=== PATIENT | male | born 1965 | race Caucasian/White ===

== ENCOUNTER → 2016-05-02 | Outpatient (REF) | payer BC, MEDICARE ==
[~2016-05-02] MED LIST: ASPI81CH21 PO; AUGM875T27 PO; BACL10TA2 PO; BUPR100T6 PO; CHLORHEXIDINE SSP; CLIN300C PO; DOCU10ELUD PO; FENT75DI18 TD; OXYC5CAP2 PO; TYLE650T30 PO; WELL150T PO
[2016-05-09 08:06] LABS: BENZODIAZEPINES, URINE SCREEN Negative ng/mL (Cutoff=200); METHADONE, URINE SCREEN Negative ng/mL (Cutoff=300); OXYCODONE URINE Positive (.); pH, URINE 5.4 (4.5-8.9)
== END ==
LOC: M SFHCLACO 10:40
PROVIDERS: ATTEND Physician Assistant
DX: R52 Pain, unspecified (principal)

== ENCOUNTER → 2016-10-06 | Outpatient (REF) | payer BC, MEDICARE ==
[2016-10-10 14:23] LABS: BENZODIAZEPINES, URINE SCREEN Negative ng/mL (Cutoff=200); METHADONE, URINE SCREEN Negative ng/mL (Cutoff=300); pH, URINE 6.6 (4.5-8.9)
== END ==
LOC: M LAB REF 15:23 → M SFHCLACO 15:23
PROVIDERS: ATTEND Physician Assistant
DX: Z79.891 Long term (current) use of opiate analgesic (principal)

== ENCOUNTER → 2016-11-07 | Outpatient (REF) | payer BC, MEDICARE ==
[2016-11-15 14:15] LABS: BENZODIAZEPINES, URINE SCREEN Negative ng/mL (Cutoff=200); METHADONE, URINE SCREEN Negative ng/mL (Cutoff=300); OXYCODONE URINE Positive (.); pH, URINE 5.8 (4.5-8.9)
== END ==
LOC: M SFHCLACO 15:34
PROVIDERS: ATTEND Physician Assistant
DX: Z79.891 Long term (current) use of opiate analgesic (principal)

== ENCOUNTER → 2017-01-16 | Outpatient (REF) | payer BC, MEDICARE ==
[2017-01-20 00:07] LABS: BENZODIAZEPINES, URINE SCREEN Negative ng/mL (Cutoff=200); METHADONE, URINE SCREEN Negative ng/mL (Cutoff=300); OXYCODONE URINE Positive (.); pH, URINE 7.8 (4.5-8.9)
== END ==
LOC: M SFHCLACO 13:16
PROVIDERS: ATTEND Physician Assistant
DX: Z79.891 Long term (current) use of opiate analgesic (principal)

== ENCOUNTER → 2017-10-09 | Outpatient (REF) | payer BC, MEDICARE | LOC: M SFHCLACO 10:53 | DX: M54.5 Low back pain (principal); Z79.891 Long term (current) use of opiate analgesic | CPT/HCPCS: 80307 ==

== ENCOUNTER → 2017-10-18 | Outpatient (CLI) | payer BC, MEDICARE | LOC: M RAD 14:34 | DX: N50.819 Testicular pain, unspecified (principal) | CPT/HCPCS: 76870 ==

== ENCOUNTER → 2018-02-12 | Outpatient (REF) | payer BC, MEDICARE | LOC: M SFHCLACO 14:06 | DX: Z51.81 Encounter for therapeutic drug level monitoring (principal); M54.5 Low back pain; Z79.891 Long term (current) use of opiate analgesic ==

== ENCOUNTER → 2018-02-14 | Outpatient (REF) | payer BC, MEDICARE ==
[2018-02-21 17:40] LABS: AMPHETAMINE SCREEN, URINE Negative ng/mL (Cutoff=1000); BARBITURATES SCREEN, URINE Negative ng/mL (Cutoff=200); BENZODIAZEPINES, URINE SCREEN Negative ng/mL (Cutoff=200); CANNABINOID SCREEN, URINE Negative ng/mL (Cutoff=20); COCAINE SCREEN, URINE Negative ng/mL (Cutoff=300); FENTANYL URINE SCREEN Negative pg/mL (Cutoff=2000); METHADONE, URINE SCREEN Negative ng/mL (Cutoff=300); OPIATE SCREEN, URINE Negative ng/mL (Cutoff=300); OXYCODONE URINE Positive (.); OXYCODONE, SCREEN, URINE See Final Results ng/mL (Cutoff=100); OXYCODONE, URINE CONFIRM 945 ng/mL (Cutoff=100); OXYCODONE/OXYMORPH, URINE Positive (Cutoff=100); OXYMORPHONE, URINE Positive (.); OXYMORPHONE, URINE CONFIRM 997 ng/mL (Cutoff=100); PCP SCREEN, URINE Negative ng/mL (Cutoff=25); SPECIFIC GRAVITY, URINE 1.009 (.); pH, URINE 6.3 (4.5-8.9)
== END ==
LOC: M SFHCLACO 15:55
DX: Z51.81 Encounter for therapeutic drug level monitoring (principal); M54.5 Low back pain; Z79.891 Long term (current) use of opiate analgesic

== ENCOUNTER → 2018-06-04 | Outpatient (REF) | payer BC, MEDICARE ==
[2018-06-07 10:56] LABS: CREATININE, URINE 17.3 mg/dL (20.0-300.0); OXYCODONE URINE Positive (.); OXYCODONE, URINE CONFIRM 407 ng/mL (Cutoff=100); OXYCODONE/OXYMORPH, URINE Positive (Cutoff=100); OXYMORPHONE, URINE Positive (.); OXYMORPHONE, URINE CONFIRM 544 ng/mL (Cutoff=100)
== END ==
LOC: M SFHCLACO 14:35
PROVIDERS: ATTEND Physician Assistant
DX: M54.5 Low back pain (principal); Z79.891 Long term (current) use of opiate analgesic

== ENCOUNTER → 2018-08-23 | Outpatient (REF) | payer BC, MEDICARE ==
[~2018-08-23] MED LIST changes: -DOCU10ELUD PO; +DOCU5LIQ PO
== END ==
LOC: M SFHCLACO 14:44
PROVIDERS: ATTEND Physician Assistant
DX: Z79.891 Long term (current) use of opiate analgesic (principal)

== ENCOUNTER → 2019-05-30 | Outpatient (REF) | payer BC, MEDICARE | LOC: M SFHCLACO 17:26 | PROVIDERS: ATTEND Physician Assistant | DX: Z79.891 Long term (current) use of opiate analgesic (principal) ==

== ENCOUNTER → 2020-02-04 | Outpatient (REF) | payer BC, MEDICARE ==
[2020-02-09 18:07] LABS: OXYCODONE URINE Negative (Cutoff=100); OXYCODONE/OXYMORPH, URINE Positive (Cutoff=100); OXYMORPHONE, URINE Positive (.); OXYMORPHONE, URINE CONFIRM 297 ng/mL (Cutoff=100)
== END ==
LOC: M SFHCADAM 14:17
PROVIDERS: ATTEND Physician Assistant
DX: Z79.891 Long term (current) use of opiate analgesic (principal)

== ENCOUNTER → 2020-04-27 | Outpatient (REF) | payer BC, MEDICARE ==
[2020-04-27 12:47] LABS: HEMATOCRIT 47.2 % (42.0-52.0); HEMOGLOBIN 14.8 g/dl (13.5-17.5); MEAN CORPUSCULAR HEMOGLOBIN 28.5 pg (27.0-33.0); MEAN CORPUSCULAR HGB CONC 31.4 g/dl (32.0-36.5); MEAN CORPUSCULAR VOLUME 90.9 fl (80.0-96.0); PLATELET COUNT, AUTOMATED 393 10^3/uL (150-450); RED BLOOD COUNT 5.19 10^6/uL (4.30-6.10); WHITE BLOOD COUNT 8.1 10^3/uL (4.0-10.0)
[2020-04-27 12:56] LABS: INR 0.93; PROTHROMBIN TIME 12.7 SECONDS (12.5-14.3)
[2020-04-27 12:57] LABS: PARTIAL THROMBOPLASTIN TIME 28.2 SECONDS (24.2-38.5)
[2020-04-27 13:30] LABS: ALBUMIN 3.7 GM/DL (3.2-5.2); ALT/SGPT 23 U/L (12-78); BILIRUBIN,TOTAL 0.3 MG/DL (0.2-1.0); BLOOD UREA NITROGEN 16 MG/DL (7-18); CALCIUM LEVEL 9.1 MG/DL (8.5-10.1); CARBON DIOXIDE LEVEL 30 MEQ/L (21-32); CHLORIDE LEVEL 106 MEQ/L (98-107); CREATININE FOR GFR 0.99 MG/DL (0.70-1.30); GLOMERULAR FILTRATION RATE > 60.0 (>56); GLUCOSE, FASTING 100 MG/DL (70-100); POTASSIUM SERUM 4.9 MEQ/L (3.5-5.1); SODIUM LEVEL 139 MEQ/L (136-145); TOTAL PROTEIN 6.6 GM/DL (6.4-8.2)
== END ==
LOC: M SFHCADAM 09:46
PROVIDERS: ATTEND Physician Assistant
DX: Z01.818 Encounter for other preprocedural examination (principal)

== ENCOUNTER → 2020-04-27 | Outpatient (CLI) | payer BC, MEDICARE ==
--- NOTE | 2020-04-27 14:07 | REP ---
INDICATION: PRE OP. COMPARISON: No comparison chest x-ray. TECHNIQUE: Two views.. FINDINGS: The lungs are well inflated and free of infiltrate. The pleural angles are sharp. The heart size is normal. Pulmonary vasculature is not increased. No significant bony abnormality is seen. Patient is status post lower cervical spine fusion surgery. A dorsal column stimulator lead is noted in the midthoracic spinal canal. There is minimal linear fibrosis in the left lung base. IMPRESSION: No active disease. Dorsal column stimulator and cervical spine fusion hardware noted.. <Electronically signed by Barry Castellanos > 04/27/20 [id number]
== END ==
LOC: M ADAMS 09:47
PROVIDERS: ATTEND Physician Assistant
DX: Z01.818 Encounter for other preprocedural examination (principal)

== ENCOUNTER → 2020-05-27 | Outpatient (CLI) | payer BC, MEDICARE ==
--- NOTE | 2020-05-28 15:20 | SLEEPCENT ---
DATE: 05/27/2020 ORDERED BY: Bryanna Clayton Nocturnal polysomnography was performed for evaluation of sleep physiology in this patient with a history of excessive somnolence and nonrestorative sleep. There was 8 hours and 6 minutes of data reviewed. There was 432 minutes of sleep identified. Sleep latency was short at 6.5 minutes. REM latency was delayed at 242.5 minutes. Sleep architecture shows initial fragmentation. Progression improved later in the night, and there were two REM cycles noted. Overall sleep efficiency was 90.3%. The electrocardiogram showed a sinus rhythm with an average heart rate of 62 beats per minute. Rate ranged 56-80. EEG showed fairly normal waveforms for wake and sleep. There were no focal events identified. There were 32 respiratory events identified of 10 second in duration or greater for an apnea-hypopnea index of 5.2. The events were obstructive, not exclusive to sleep stage. They occurred in the supine posture. Arousals from respiratory events occurred only 1.5 times per hour. There were few oxygen desaturations below 90%. Minor intermittent limb activity and snoring was appreciated over the entire study. IMPRESSION: Mild positional obstructive sleep apnea syndrome (G47.33). Apnea-hypopnea index 5.2. RECOMMENDATION: Sleep position retraining for the avoidance of the supine posture should be sufficient to address the patient's respiratory disruption. If symptoms persist, referral back to the sleep disorder center for pressure therapy could be considered. In the interim, alcohol and sedative avoidance should be practiced and caution exercised during the operation of motor vehicles.
== END ==
LOC: M SLEEP 20:00
PROVIDERS: ATTEND Nurse Practitioner Family
DX: R06.83 Snoring (principal)

== ENCOUNTER → 2020-06-24 | Outpatient (REF) | payer BC, MEDICARE ==
[2020-06-24 13:36] LABS: APPEARANCE, URINE CLEAR (CLEAR); BACTERIA, URINE AUTO NEGATIVE (NEGATIVE); BILIRUBIN, URINE AUTO NEGATIVE (NEGATIVE); BLOOD, URINE BLOOD NEGATIVE (NEGATIVE); COLOR, URINE YELLOW (YELLOW); GLUCOSE, URINE (UA) AUTO NEGATIVE (NEGATIVE); KETONE, URINE AUTO NEGATIVE (NEGATIVE); LEUKOCYTE ESTERASE, URINE AUTO TRACE (NEGATIVE); MUCUS, URINE SMALL (NEGATIVE); NITRITE, URINE AUTO NEGATIVE (NEGATIVE); PROTEIN, URINE AUTO NEGATIVE (NEGATIVE); RBC, URINE AUTO 2 /HPF (0-3); SPECIFIC GRAVITY URINE AUTO 1.015 (1.002-1.035); SQUAMOUS EPITHELIAL CELL UR AU 0 /HPF (0-6); UROBILINOGEN, URINE AUTO 0.2 mg/dL (0.0-2.0); WBC, URINE AUTO 0 /HPF (0-3)
[2020-06-24 13:37] LABS: BASO # 0.1 10^3/uL (0.0-0.2); EOS # 0.3 10^3/uL (0.0-0.5); EOS % 4.8 % (0.0-3.0); HEMOGLOBIN 14.9 g/dl (13.5-17.5); LYMPH # 2.6 10^3/uL (1.5-5.0); LYMPH % 38.6 % (24.0-44.0); MEAN CORPUSCULAR HEMOGLOBIN 29.4 pg (27.0-33.0); MEAN CORPUSCULAR HGB CONC 32.4 g/dl (32.0-36.5); MEAN CORPUSCULAR VOLUME 90.7 fl (80.0-96.0); MONO # 0.7 10^3/uL (0.0-0.8); MONO % 10.3 % (2.0-8.0); NEUTROPHILS # 3.1 10^3/uL (1.5-8.5); NEUTROPHILS % 44.9 % (36.0-66.0); PLATELET COUNT, AUTOMATED 372 10^3/uL (150-450); RED BLOOD COUNT 5.07 10^6/uL (4.30-6.10); WHITE BLOOD COUNT 6.8 10^3/uL (4.0-10.0)
[2020-06-24 13:46] LABS: INR 0.93; PROTHROMBIN TIME 12.7 SECONDS (12.5-14.3)
[2020-06-24 13:47] LABS: PARTIAL THROMBOPLASTIN TIME 30.3 SECONDS (24.2-38.5)
[2020-06-24 14:22] LABS: ALBUMIN 3.8 GM/DL (3.2-5.2); ALT/SGPT 31 U/L (12-78); BILIRUBIN,TOTAL 0.3 MG/DL (0.2-1.0); BLOOD UREA NITROGEN 14 MG/DL (7-18); CALCIUM LEVEL 9.3 MG/DL (8.5-10.1); CARBON DIOXIDE LEVEL 26 MEQ/L (21-32); CHLORIDE LEVEL 109 MEQ/L (98-107); CREATININE FOR GFR 0.89 MG/DL (0.70-1.30); GLOMERULAR FILTRATION RATE > 60.0 (>56); GLUCOSE, FASTING 101 MG/DL (70-100); NT-PRO BNP 10 PG/ML (<125); POTASSIUM SERUM 4.8 MEQ/L (3.5-5.1); SODIUM LEVEL 139 MEQ/L (136-145); TOTAL PROTEIN 6.8 GM/DL (6.4-8.2)
[2020-06-30 19:10] LABS: CANNABINOID, URINE Negative (Cutoff=20); CODEINE, URINE Negative (Cutoff=100); CREATININE, URINE 75.6 mg/dL (20.0-300.0); HYDROCODONE CONFIRM, URINE 296 ng/mL (Cutoff=100); HYDROCODONE, URINE Positive (.); HYDROMORPHONE, URINE Negative (Cutoff=100); MORPHINE, URINE Negative (Cutoff=100); OPIATES, URINE Positive ng/mL (Cutoff=300); OXYCODONE URINE Positive (.); OXYCODONE, URINE CONFIRM 1298 ng/mL (Cutoff=100); OXYCODONE/OXYMORPH, URINE Positive (Cutoff=100); OXYMORPHONE, URINE Positive (.); OXYMORPHONE, URINE CONFIRM 4322 ng/mL (Cutoff=100)
== END ==
LOC: M SFHCPLAZ 09:59
PROVIDERS: ATTEND Family Medicine
DX: Z01.818 Encounter for other preprocedural examination (principal)

== ENCOUNTER → 2022-02-17 | Outpatient (REF) | payer MEDICARE ==
[2022-02-17 17:36] LABS: BLOOD UREA NITROGEN 28 MG/DL (7-18); CALCIUM LEVEL 9.3 MG/DL (8.5-10.1); CARBON DIOXIDE LEVEL 25 MEQ/L (21-32); CHLORIDE LEVEL 108 MEQ/L (98-107); CREATININE FOR GFR 1.05 MG/DL (0.70-1.30); GLOMERULAR FILTRATION RATE > 60.0 (>56); GLUCOSE, FASTING 73 MG/DL (70-100); POTASSIUM SERUM 4.3 MEQ/L (3.5-5.1); SODIUM LEVEL 139 MEQ/L (136-145)
== END ==
LOC: M SFHCADAM 14:05
PROVIDERS: ATTEND Physician Assistant
DX: R60.0 Localized edema (principal); G47.33 Obstructive sleep apnea (adult) (pediatric)

== ENCOUNTER → 2022-02-17 | Outpatient (CLI) | payer MEDICARE | LOC: M ADAMS 14:07 | PROVIDERS: ATTEND Physician Assistant | DX: R60.0 Localized edema (principal); G47.33 Obstructive sleep apnea (adult) (pediatric) ==

== ENCOUNTER → 2022-03-28 | Outpatient (REF) | payer MEDICARE ==
[2022-03-28 14:44] LABS: BASO # 0.1 10^3/uL (0.0-0.2); BASO % 0.8 % (0.0-1.0); EOS # 0.3 10^3/uL (0.0-0.5); EOS % 2.5 % (0.0-3.0); HEMATOCRIT 48.3 % (42.0-52.0); HEMOGLOBIN 15.5 g/dl (13.5-17.5); LYMPH # 3.9 10^3/uL (1.5-5.0); LYMPH % 29.7 % (24.0-44.0); MEAN CORPUSCULAR HEMOGLOBIN 29.8 pg (27.0-33.0); MEAN CORPUSCULAR HGB CONC 32.1 g/dl (32.0-36.5); MEAN CORPUSCULAR VOLUME 92.9 fl (80.0-96.0); MONO % 7.7 % (2.0-8.0); NEUTROPHILS # 7.6 10^3/uL (1.5-8.5); NEUTROPHILS % 58.7 % (36.0-66.0); PLATELET COUNT, AUTOMATED 389 10^3/uL (150-450)
[2022-03-28 15:38] LABS: CHLORIDE LEVEL 107 MMOL/L (98-107); POTASSIUM SERUM 4.7 MMOL/L (3.5-5.1); SODIUM LEVEL 140 MMOL/L (136-145)
[2022-03-28 15:39] LABS: ALBUMIN 3.9 G/DL (3.2-5.2); CARBON DIOXIDE LEVEL 23 MMOL/L (20-31)
[2022-03-28 15:43] LABS: BLOOD UREA NITROGEN 26 MG/DL (9-23)
[2022-03-28 15:44] LABS: ALKALINE PHOSPHATASE 69 U/L (46-116); CALCIUM LEVEL 9.7 MG/DL (8.5-10.1); GLUCOSE, FASTING 97 MG/DL (60-100); TRIGLYCERIDES LEVEL 126 MG/DL (<150)
[2022-03-28 15:46] LABS: ALT/SGPT 30 U/L (7.0-40); AST/SGOT 25 U/L (<34); BILIRUBIN,TOTAL < 0.2 MG/DL (0.3-1.2); CHOLESTEROL LEVEL 179 MG/DL (<200); CHOLESTEROL RISK RATIO 3.56 (<5); CREATININE FOR GFR 1.24 MG/DL (0.70-1.30); GLOMERULAR FILTRATION RATE > 60.0 (>56); HDL CHOLESTEROL 50.2 MG/DL (>40); LDL CHOLESTEROL 103.6 MG/DL (<100); NON-HDL-C 129 MG/DL; TOTAL PROTEIN 6.8 G/DL (5.7-8.2)
[2022-03-28 17:32] LABS: HEMOGLOBIN A1c 5.2 % (4.0-6.0)
== END ==
LOC: M SFHCADAM 09:56
PROVIDERS: ATTEND Physician Assistant
DX: K22.70 Barrett's esophagus without dysplasia (principal); Z86.73 Personal history of transient ischemic attack (TIA), and cerebral infarction without residual deficits; Z12.5 Encounter for screening for malignant neoplasm of prostate; G47.33 Obstructive sleep apnea (adult) (pediatric); Z12.11 Encounter for screening for malignant neoplasm of colon; J01.90 Acute sinusitis, unspecified; E66.01 Morbid (severe) obesity due to excess calories; Z13.1 Encounter for screening for diabetes mellitus; Z79.899 Other long term (current) drug therapy
CPT/HCPCS: 80053; 80061; 83036; 85025; G0103

== ENCOUNTER → 2022-05-02 | Outpatient (CLI) | payer MEDICARE | LOC: M CARPUL 11:42 | PROVIDERS: ATTEND Physician Assistant | DX: R60.0 Localized edema (principal) ==

== ENCOUNTER → 2022-06-02 | Outpatient (REF) | payer MEDICARE ==
[2022-06-02 15:05] LABS: BASO # 0.1 10^3/uL (0.0-0.2); BASO % 0.8 % (0.0-1.0); EOS # 0.3 10^3/uL (0.0-0.5); EOS % 2.8 % (0.0-3.0); HEMOGLOBIN 14.6 g/dl (13.5-17.5); LYMPH # 3.1 10^3/uL (1.5-5.0); LYMPH % 27.9 % (24.0-44.0); MEAN CORPUSCULAR HEMOGLOBIN 30.2 pg (27.0-33.0); MEAN CORPUSCULAR HGB CONC 32.4 g/dl (32.0-36.5); MONO # 0.8 10^3/uL (0.0-0.8); MONO % 6.9 % (2.0-8.0); NEUTROPHILS # 6.7 10^3/uL (1.5-8.5); PLATELET COUNT, AUTOMATED 406 10^3/uL (150-450); RED BLOOD COUNT 4.84 10^6/uL (4.30-6.10)
[2022-06-02 15:26] LABS: ALBUMIN 3.6 G/DL (3.2-5.2); ALKALINE PHOSPHATASE 60 U/L (46-116); ALT/SGPT 24 U/L (7.0-40); AST/SGOT 20 U/L (<34); BILIRUBIN,TOTAL 0.3 MG/DL (0.3-1.2); BLOOD UREA NITROGEN 20 MG/DL (9-23); CALCIUM LEVEL 9.3 MG/DL (8.5-10.1); CARBON DIOXIDE LEVEL 26 MMOL/L (20-31); CHLORIDE LEVEL 107 MMOL/L (98-107); CREATININE FOR GFR 1.03 MG/DL (0.70-1.30); GLOMERULAR FILTRATION RATE > 60.0 (>56); GLUCOSE, FASTING 99 MG/DL (60-100); POTASSIUM SERUM 4.6 MMOL/L (3.5-5.1); SODIUM LEVEL 140 MMOL/L (136-145); TOTAL PROTEIN 6.6 G/DL (5.7-8.2)
== END ==
LOC: M SFHCADAM 11:40
PROVIDERS: ATTEND Physician Assistant
DX: I11.9 Hypertensive heart disease without heart failure (principal); R60.0 Localized edema

== ENCOUNTER → 2022-06-23 | Outpatient (CLI) | payer MEDICARE | LOC: M RAD 14:43 | PROVIDERS: ATTEND Physician Assistant | DX: Z12.2 Encounter for screening for malignant neoplasm of respiratory organs (principal); F17.210 Nicotine dependence, cigarettes, uncomplicated ==

== ENCOUNTER → 2023-01-12 | Outpatient (CLI) | payer MEDICARE ==
[~2023-01-12] MED LIST changes: +ISOVUE-370 76% 100ML VIAL As Ordered ONE
== END ==
LOC: M RAD 08:17
PROVIDERS: ATTEND Physician Assistant
DX: R91.1 Solitary pulmonary nodule (principal)
CPT/HCPCS: 71260; Q9967

== ENCOUNTER → 2023-07-12 | Outpatient (REF) | payer MEDICARE ==
[~2023-07-12] MED LIST changes: -ISOVUE-370 76% 100ML VIAL As Ordered ONE
== END ==
LOC: M SFHCADAM 14:13
PROVIDERS: ATTEND Physician Assistant
DX: R53.81 Other malaise (principal); R05.1 Acute cough

== ENCOUNTER → 2024-05-01 | Outpatient (CLI) | payer MEDICARE ==
[~2024-05-01] MED LIST changes: +ACET-683 PO; +DULO1CAP6 PO; +FLUTISP; +FURO40TA2 PO; +LOSA25TA13 PO; +PANT40TA29 PO
== END ==
LOC: M ADAMS 10:21
PROVIDERS: ATTEND Physician Assistant
DX: R05.3 Chronic cough (principal)
CPT/HCPCS: 71046; G0463

== ENCOUNTER 2024-07-09 14:51 | Inpatient (IN) | payer MEDICARE ==
[~2024-07-09] VITALS: Ht 172.7 cm; Wt 162.8 kg
[~2024-07-09 14:51] MED LIST changes: -ACET-683 PO; -DULO1CAP6 PO; -FLUTISP; -FURO40TA2 PO; -LOSA25TA13 PO; -PANT40TA29 PO
[2024-07-09] MEDS ORDERED: LOSA25TA13 PO (16:21)
[2024-07-09] MEDS ORDERED: PANT40TA29 PO (16:21)
[2024-07-09] MEDS ORDERED: FURO40TA2 PO (16:21)
[2024-07-09] MEDS: MORPHINE 4 MG/ML 1ML VIAL IV PRN (16:21)
[2024-07-09] MEDS: methylPREDNISolone 125MG 2ML VIAL IV ONE (16:21)
[2024-07-09] MEDS ORDERED: FLUTISP (16:21)
[2024-07-09] MEDS ORDERED: DULO1CAP6 PO (16:21)
[2024-07-09] MEDS: ONDANSETRON 4MG 2ML VIAL IV ONE (16:21)
[2024-07-09] MEDS ORDERED: ACET-683 PO (16:21)
[2024-07-09] MEDS: IPRATROPIUM 0.5MG/ALBUTEROL 2.5MG INH SOL UD 3ML (DUONEB) NEB PRN ×2 (16:23→22:04)
[2024-07-09 16:24] LABS: VENOUS BASE EXCESS -1.2 (-2.0-2.0); VENOUS HCO3 23.8 MMOL/L (23.0-27.0); VENOUS O2 SATURATION 85.8 % (60.0-80.0); VENOUS PARTIAL PRESSURE CO2 40.6 mmHg (38.0-50.0); VENOUS PARTIAL PRESSURE O2 49.8 mmHg (30.0-50.0); VENOUS PH 7.385 UNITS (7.330-7.430); VENOUS STANDARD HCO3 23.2 MMOL/L
[2024-07-09] MEDS ORDERED: HOME MED LIST COMPLETE! XX SCH (16:25)
[2024-07-09 16:32] LABS: BASO # 0.1 10^3/uL (0.0-0.2); BASO % 0.6 % (0.0-1.0); EOS # 0.6 10^3/uL (0.0-0.5); EOS % 3.4 % (0.0-3.0); HEMATOCRIT 40.6 % (42.0-52.0); HEMOGLOBIN 13.3 g/dl (13.5-17.5); LYMPH # 2.5 10^3/uL (1.5-5.0); LYMPH % 14.9 % (24.0-44.0); MEAN CORPUSCULAR HEMOGLOBIN 29.6 pg (27.0-33.0); MEAN CORPUSCULAR HGB CONC 32.8 g/dl (32.0-36.5); MEAN CORPUSCULAR VOLUME 90.2 fl (80.0-96.0); MONO # 1.2 10^3/uL (0.0-0.8); MONO % 7.1 % (2.0-8.0); NEUTROPHILS # 12.3 10^3/uL (1.5-8.5); NEUTROPHILS % 73.2 % (36.0-66.0); PLATELET COUNT, AUTOMATED 507 10^3/uL (150-450); WHITE BLOOD COUNT 16.9 10^3/uL (4.0-10.0)
[2024-07-09] MEDS: cefTRIAXone SOD 1 GM in DEXTROSE 5% (D5W) ADV/MINI-BAG 50 ML IV ONE (16:32)
[2024-07-09] MEDS ORDERED: ISOVUE-370 76% 100ML VIAL As Ordered ONE (16:33)
[2024-07-09 16:48] LABS: CK-MB VALUE MASS 1.8 NG/ML (<3.6); LIPASE 37 U/L (12-53)
[2024-07-09 16:49] LABS: INR 1.03; PROTHROMBIN TIME 13.8 SECONDS (12.5-14.5)
[2024-07-09 16:51] LABS: ALKALINE PHOSPHATASE 64 U/L (40-129); ALT/SGPT 27 U/L (7.0-40); AST/SGOT 14 U/L (<34); BILIRUBIN,DIRECT 0.1 MG/DL (<0.4); BILIRUBIN,TOTAL 0.3 MG/DL (0.3-1.2); BLOOD UREA NITROGEN 17 MG/DL (9-23); CARBON DIOXIDE LEVEL 25 MMOL/L (20-31); CHLORIDE LEVEL 110 MMOL/L (98-107); CPK CREATINE PHOSPHOKINASE 146 U/L (46-171); CREATININE FOR GFR 1.01 MG/DL (0.70-1.30); GLOMERULAR FILTRATION RATE > 60.0 (>56); GLUCOSE, FASTING 103 MG/DL (60-100); MB/CK RELATIVE INDEX 1.23 (< OR =4); POTASSIUM SERUM 4.5 MMOL/L (3.5-5.1); SODIUM LEVEL 143 MMOL/L (136-145); TOTAL PROTEIN 6.6 G/DL (5.7-8.2)
[2024-07-09] MEDS: KETOROLAC 30 MG/ML 1ML VIAL IV ONE ×2 (17:16→22:51)
[2024-07-09] MEDS ORDERED: guaiFENesin DM *SUGAR FREE* 5ML**DIABETIC TUSSIN DM PO PRN (18:00)
[2024-07-09] MEDS ORDERED: MAALOX 30 ML SUSP *UDC PO PRN (18:00)
[2024-07-09] MEDS ORDERED: MOM 30ML SUSPENSION UDC PO PRN (18:00)
[2024-07-09] MEDS ORDERED: cefTRIAXone SOD 2 GM in DEXTROSE 5% (D5W) ADV/MINI-BAG 50 ML IV SCH (18:00)
[2024-07-09] MEDS: KETOROLAC 30 MG/ML 1ML VIAL IV STA (18:06)
[2024-07-09 18:40] LABS: C REACTIVE PROTEIN QUANTITATIV 12.19 MG/DL (<1.0)
[2024-07-09 18:48] LABS: PROCALCITONIN 0.17 ng/ml
[2024-07-09] MEDS: VANCOMYCIN HCL 2,000 MG, VIAL MATE ADAPTER 1 EACH in NS 500 ML IV ONE (18:59)
[2024-07-09] MEDS: guaiFENesin ER TABLET 600 MG TAB PO SCH (20:53)
[2024-07-09] MEDS: ACETAMINOPHEN 325 MG TAB PO PRN (20:54)
[2024-07-09] MEDS: PIPERACILLIN/TAZOBACTAM SOD 4.5 GM in DEXTROSE 5% (D5W) ADV/MINI-BAG 50 ML IV SCH (21:18)
[2024-07-09 21:39] VITALS: BP 123/60; TEMP 97; O2SAT 90
[2024-07-09] MEDS: HEPARIN SOD (PORCINE) 5000UNITS/ML 1ML VIAL/SYRINGE SC SCH (22:10)
[2024-07-09 23:37] VITALS: BP 106/59; TEMP 97.1; O2SAT 91
[2024-07-10] VITALS (16 sets, daily range): BP systolic 114–149; BP diastolic 58–79; TEMP 98.2–98.9; O2SAT 91–99
[2024-07-10] MEDS ORDERED: FUROSEMIDE 40 MG TAB PO PRN (06:00)
[2024-07-10] MEDS: KETOROLAC 30 MG/ML 1ML VIAL IV ONE (06:10)
[2024-07-10] MEDS: VANCOMYCIN HCL 1,500 MG, VIAL MATE ADAPTER 1 EACH in NS 500 ML IV SCH (06:11)
[2024-07-10 06:44] LABS: VANCOMYCIN LEVEL TROUGH 7.6 UG/ML (10.0-20.0)
[2024-07-10 06:45] LABS: BLOOD UREA NITROGEN 18 MG/DL (9-23); CARBON DIOXIDE LEVEL 25 MMOL/L (20-31); CHLORIDE LEVEL 107 MMOL/L (98-107); CREATININE FOR GFR 0.86 MG/DL (0.70-1.30); GLOMERULAR FILTRATION RATE > 60.0 (>56); GLUCOSE, FASTING 145 MG/DL (60-100); MAGNESIUM LEVEL 2.3 MG/DL (1.8-2.4); POTASSIUM SERUM 4.8 MMOL/L (3.5-5.1); SODIUM LEVEL 138 MMOL/L (136-145)
[2024-07-10 06:54] LABS: BASO % 0.2 % (0.0-1.0); HEMATOCRIT 34.9 % (42.0-52.0); HEMOGLOBIN 11.7 g/dl (13.5-17.5); LYMPH # 1.1 10^3/uL (1.5-5.0); LYMPH % 6.1 % (24.0-44.0); MEAN CORPUSCULAR HEMOGLOBIN 30.3 pg (27.0-33.0); MEAN CORPUSCULAR HGB CONC 33.5 g/dl (32.0-36.5); MEAN CORPUSCULAR VOLUME 90.4 fl (80.0-96.0); MONO # 0.8 10^3/uL (0.0-0.8); MONO % 4.5 % (2.0-8.0); NEUTROPHILS # 16.2 10^3/uL (1.5-8.5); NEUTROPHILS % 88.5 % (36.0-66.0); PLATELET COUNT, AUTOMATED 459 10^3/uL (150-450); RED BLOOD COUNT 3.86 10^6/uL (4.30-6.10); WHITE BLOOD COUNT 18.3 10^3/uL (4.0-10.0)
[2024-07-10] MEDS: DULoxetine 30MG CAPSULE (CYMBALTA) PO SCH (09:29)
[2024-07-10] MEDS: PANTOPRAZOLE 40MG TAB (PROTONIX) PO SCH (09:29)
[2024-07-10] MEDS: FLUTICASONE PROP 0.05% NASAL SPRAY 16 GM (FLONASE) SCH (09:30)
[2024-07-10] MEDS: LOSARTAN 25 MG TAB PO SCH (09:31)
[2024-07-10] MEDS: LIDOCAINE 1% MDV 20ML VIAL SC ONE (15:28)
[2024-07-10] MEDS: VANCOMYCIN HCL 1,250 MG, VIAL MATE ADAPTER 1 EACH in NS 250 ML IV SCH (17:02)
[2024-07-10 17:37] LABS: APPEARANCE, BODY FLUID TURBID (CLEAR); PLEURAL FL COLOR RED (COLORLESS); SOURCE, BODY FLUID PLEURAL
[2024-07-10 17:48] LABS: SOURCE, BODY FLUID ALBUMIN PLEURAL
[2024-07-10 17:53] LABS: SOURCE, BODY FLUID GLUCOSE PLEURAL
[2024-07-10 17:54] LABS: SOURCE, BODY FLUID TOT PROTEIN PLEURAL; TOTAL PROTEIN, BODY FLUID 4.3 G/DL (NOT ESTABLISHED)
[2024-07-10 17:55] LABS: AMYLASE, BODY FLUID 27 U/L (NOT ESTABLISHED); CHOLESTEROL, BODY FLUID 108 MG/DL (NOT ESTABLISHED); SOURCE, BODY FLUID AMYLASE PLEURAL; SOURCE, BODY FLUID CHOL PLEURAL
[2024-07-10 18:04] LABS: SOURCE, BODY FLUID LDH PLEURAL
[2024-07-10 18:19] LABS: SOURCE, BODY FLUID TRIG PLEURAL; TRIGLYCERIDE, BODY FLUID 43 MG/DL (NOT ESTABLISHED)
[2024-07-11] VITALS (7 sets, daily range): BP systolic 119–136; BP diastolic 67–80; TEMP 97.4–98.8; O2SAT 90–98
[2024-07-11] MEDS: KETOROLAC 30 MG/ML 1ML VIAL IV ONE (02:26)
[2024-07-11] MEDS: guaiFENesin DM LIQ 10ML UD PO ONE ×2 (04:29→04:34)
[2024-07-11 07:15] LABS: BASO # 0.1 10^3/uL (0.0-0.2); BASO % 0.8 % (0.0-1.0); EOS # 0.8 10^3/uL (0.0-0.5); EOS % 5.1 % (0.0-3.0); HEMATOCRIT 37.2 % (42.0-52.0); LYMPH # 3.6 10^3/uL (1.5-5.0); LYMPH % 23.6 % (24.0-44.0); MEAN CORPUSCULAR HEMOGLOBIN 29.6 pg (27.0-33.0); MEAN CORPUSCULAR HGB CONC 32.3 g/dl (32.0-36.5); MEAN CORPUSCULAR VOLUME 91.6 fl (80.0-96.0); MONO # 1.2 10^3/uL (0.0-0.8); MONO % 8.1 % (2.0-8.0); NEUTROPHILS # 9.4 10^3/uL (1.5-8.5); NEUTROPHILS % 61.5 % (36.0-66.0); PLATELET COUNT, AUTOMATED 502 10^3/uL (150-450); RED BLOOD COUNT 4.06 10^6/uL (4.30-6.10); WHITE BLOOD COUNT 15.3 10^3/uL (4.0-10.0)
[2024-07-11 07:42] LABS: BLOOD UREA NITROGEN 20 MG/DL (9-23); CALCIUM LEVEL 8.6 MG/DL (8.5-10.1); CARBON DIOXIDE LEVEL 26 MMOL/L (20-31); CHLORIDE LEVEL 110 MMOL/L (98-107); CREATININE FOR GFR 0.84 MG/DL (0.70-1.30); GLOMERULAR FILTRATION RATE > 60.0 (>56); GLUCOSE, FASTING 98 MG/DL (60-100); MAGNESIUM LEVEL 2.3 MG/DL (1.8-2.4); POTASSIUM SERUM 4.9 MMOL/L (3.5-5.1); SODIUM LEVEL 142 MMOL/L (136-145)
[2024-07-11] MEDS ORDERED: VANCOMYCIN HCL 1,000 MG, VIAL MATE ADAPTER 1 EACH in NS 250 ML IV SCH ×2 (08:00→08:17)
[2024-07-11] MEDS: MORPHINE 2 MG/ML 1ML VIAL IV STA (08:49)
[2024-07-11] MEDS: LIDOCAINE 5% (LIDODERM) PATCH TD SCH (08:54)
[2024-07-11] MEDS: VANCOMYCIN HCL 1,000 MG, VIAL MATE ADAPTER 1 EACH in NS 250 ML IV SCH (09:17)
[2024-07-11] MEDS ORDERED: MORPHINE 2 MG/ML 1ML VIAL IV PRN (12:55)
[2024-07-11] MEDS: ACETAMINOPHEN *IV* 1,000 MG in IV 1 EA IV SCH (14:16)
[2024-07-11] MEDS: ALTEPLASE 10MG IN NS 60ML SYRINGE INTRAPLEU ONE (14:21)
[2024-07-11] MEDS: PULMOZYME 5MG IN NS 55ML SYRINGE INTRAPLEU ONE (14:22)
[2024-07-11] MEDS: NS 50 ML SYRINGE INTRAPLEU ONE (14:24)
[2024-07-11] MEDS: MORPHINE 4 MG/ML 1ML VIAL IV PRN (14:27)
[2024-07-12] VITALS (7 sets, daily range): BP systolic 121–158; BP diastolic 63–93; TEMP 96.2–98.2; O2SAT 92–96
[2024-07-12 06:11] LABS: BASO # 0.1 10^3/uL (0.0-0.2); BASO % 0.9 % (0.0-1.0); EOS # 1.1 10^3/uL (0.0-0.5); EOS % 6.8 % (0.0-3.0); HEMOGLOBIN 12.8 g/dl (13.5-17.5); LYMPH # 3.3 10^3/uL (1.5-5.0); MEAN CORPUSCULAR HEMOGLOBIN 29.5 pg (27.0-33.0); MEAN CORPUSCULAR VOLUME 92.2 fl (80.0-96.0); MONO # 1.3 10^3/uL (0.0-0.8); MONO % 8.4 % (2.0-8.0); NEUTROPHILS # 9.5 10^3/uL (1.5-8.5); NEUTROPHILS % 61.2 % (36.0-66.0); PLATELET COUNT, AUTOMATED 518 10^3/uL (150-450); RED BLOOD COUNT 4.34 10^6/uL (4.30-6.10); WHITE BLOOD COUNT 15.6 10^3/uL (4.0-10.0)
[2024-07-12 06:44] LABS: BLOOD UREA NITROGEN 18 MG/DL (9-23); CALCIUM LEVEL 8.6 MG/DL (8.5-10.1); CARBON DIOXIDE LEVEL 27 MMOL/L (20-31); CHLORIDE LEVEL 105 MMOL/L (98-107); CREATININE FOR GFR 0.88 MG/DL (0.70-1.30); GLOMERULAR FILTRATION RATE > 60.0 (>56); GLUCOSE, FASTING 115 MG/DL (60-100); MAGNESIUM LEVEL 2.1 MG/DL (1.8-2.4); POTASSIUM SERUM 4.5 MMOL/L (3.5-5.1); SODIUM LEVEL 139 MMOL/L (136-145)
[2024-07-12] MEDS ORDERED: LIDOCAINE 1% MDV 20ML VIAL As Ordered ONE (11:08)
[2024-07-12] MEDS: LIDOCAINE 1% MDV 20ML VIAL SC ONE (12:08)
[2024-07-12] MEDS: ALTEPLASE 10MG IN NS 60ML SYRINGE INTRAPLEU ONE (14:14)
[2024-07-12] MEDS: PULMOZYME 5MG IN NS 55ML SYRINGE INTRAPLEU ONE (14:14)
[2024-07-12] MEDS: NS 50 ML SYRINGE INTRAPLEU ONE (14:14)
[2024-07-13] VITALS (8 sets, daily range): BP systolic 126–148; BP diastolic 59–90; TEMP 97.5–98.6; O2SAT 92–96
[2024-07-13 06:16] LABS: BASO # 0.1 10^3/uL (0.0-0.2); BASO % 0.7 % (0.0-1.0); EOS % 6.7 % (0.0-3.0); HEMATOCRIT 38.8 % (42.0-52.0); HEMOGLOBIN 12.4 g/dl (13.5-17.5); LYMPH # 3.2 10^3/uL (1.5-5.0); LYMPH % 20.8 % (24.0-44.0); MEAN CORPUSCULAR HEMOGLOBIN 29.3 pg (27.0-33.0); MEAN CORPUSCULAR VOLUME 91.7 fl (80.0-96.0); MONO # 1.1 10^3/uL (0.0-0.8); MONO % 6.8 % (2.0-8.0); NEUTROPHILS # 9.9 10^3/uL (1.5-8.5); NEUTROPHILS % 63.6 % (36.0-66.0); PLATELET COUNT, AUTOMATED 513 10^3/uL (150-450); RED BLOOD COUNT 4.23 10^6/uL (4.30-6.10); WHITE BLOOD COUNT 15.5 10^3/uL (4.0-10.0)
[2024-07-13 06:44] LABS: BLOOD UREA NITROGEN 13 MG/DL (9-23); CALCIUM LEVEL 8.8 MG/DL (8.5-10.1); CARBON DIOXIDE LEVEL 27 MMOL/L (20-31); CHLORIDE LEVEL 105 MMOL/L (98-107); CREATININE FOR GFR 0.78 MG/DL (0.70-1.30); GLOMERULAR FILTRATION RATE > 60.0 (>56); GLUCOSE, FASTING 100 MG/DL (60-100); MAGNESIUM LEVEL 2.3 MG/DL (1.8-2.4); POTASSIUM SERUM 4.9 MMOL/L (3.5-5.1); SODIUM LEVEL 140 MMOL/L (136-145)
[2024-07-13] MEDS ORDERED: LIDOCAINE 1% MDV 20ML VIAL SC ONE (16:00)
[2024-07-13] MEDS: LIDOCAINE 1% MDV 20ML VIAL SC ONE (16:49)
[2024-07-13] MEDS: ACETAMINOPHEN *IV* 1,000 MG in IV 1 EA IV ONE (20:22)
[2024-07-13] MEDS: MORPHINE 2 MG/ML 1ML VIAL IV PRN (23:10)
[2024-07-14 03:06] VITALS: BP 153/87; TEMP 97.7; O2SAT 95
[2024-07-14 05:52] LABS: BASO # 0.1 10^3/uL (0.0-0.2); BASO % 0.8 % (0.0-1.0); EOS % 7.2 % (0.0-3.0); HEMATOCRIT 38.9 % (42.0-52.0); HEMOGLOBIN 12.5 g/dl (13.5-17.5); LYMPH # 2.9 10^3/uL (1.5-5.0); LYMPH % 21.1 % (24.0-44.0); MEAN CORPUSCULAR HEMOGLOBIN 29.4 pg (27.0-33.0); MEAN CORPUSCULAR HGB CONC 32.1 g/dl (32.0-36.5); MEAN CORPUSCULAR VOLUME 91.5 fl (80.0-96.0); MONO % 6.8 % (2.0-8.0); NEUTROPHILS # 8.7 10^3/uL (1.5-8.5); NEUTROPHILS % 62.4 % (36.0-66.0); PLATELET COUNT, AUTOMATED 525 10^3/uL (150-450); RED BLOOD COUNT 4.25 10^6/uL (4.30-6.10); WHITE BLOOD COUNT 13.9 10^3/uL (4.0-10.0)
[2024-07-14 06:20] LABS: BLOOD UREA NITROGEN 12 MG/DL (9-23); CALCIUM LEVEL 8.8 MG/DL (8.5-10.1); CARBON DIOXIDE LEVEL 29 MMOL/L (20-31); CHLORIDE LEVEL 104 MMOL/L (98-107); CREATININE FOR GFR 0.83 MG/DL (0.70-1.30); GLOMERULAR FILTRATION RATE > 60.0 (>56); GLUCOSE, FASTING 117 MG/DL (60-100); MAGNESIUM LEVEL 2.3 MG/DL (1.8-2.4); POTASSIUM SERUM 4.6 MMOL/L (3.5-5.1); SODIUM LEVEL 139 MMOL/L (136-145)
[2024-07-14 08:03] VITALS: BP 155/83; TEMP 97.9; O2SAT 93
[2024-07-14] MEDS: MORPHINE 4 MG/ML 1ML VIAL IV PRN (08:14)
[2024-07-14] MEDS: SENOKOT S TAB PO SCH (08:15)
[2024-07-14 12:22] VITALS: BP 130/66; TEMP 98.1; O2SAT 92
[2024-07-14 15:41] VITALS: BP 137/75; TEMP 98; O2SAT 94
[2024-07-14 19:32] VITALS: BP 120/73; TEMP 97.5; O2SAT 95
[2024-07-14 21:17] LABS: MYCOPLASMA PNEUMONIAE IGG 2.03 (<=0.90)
[2024-07-14 23:02] VITALS: BP 134/78; TEMP 98.3; O2SAT 93
[2024-07-15 03:08] VITALS: BP 124/76; TEMP 97.4; O2SAT 93
[2024-07-15 06:18] LABS: BASO # 0.1 10^3/uL (0.0-0.2); EOS # 0.9 10^3/uL (0.0-0.5); EOS % 7.1 % (0.0-3.0); HEMATOCRIT 38.4 % (42.0-52.0); HEMOGLOBIN 12.4 g/dl (13.5-17.5); LYMPH # 3.3 10^3/uL (1.5-5.0); LYMPH % 25.5 % (24.0-44.0); MEAN CORPUSCULAR HEMOGLOBIN 29.4 pg (27.0-33.0); MEAN CORPUSCULAR HGB CONC 32.3 g/dl (32.0-36.5); MONO % 7.8 % (2.0-8.0); NEUTROPHILS # 7.2 10^3/uL (1.5-8.5); NEUTROPHILS % 56.3 % (36.0-66.0); PLATELET COUNT, AUTOMATED 557 10^3/uL (150-450); RED BLOOD COUNT 4.22 10^6/uL (4.30-6.10); WHITE BLOOD COUNT 12.9 10^3/uL (4.0-10.0)
[2024-07-15 06:40] LABS: BLOOD UREA NITROGEN 13 MG/DL (9-23); CARBON DIOXIDE LEVEL 28 MMOL/L (20-31); CHLORIDE LEVEL 105 MMOL/L (98-107); CREATININE FOR GFR 0.82 MG/DL (0.70-1.30); GLOMERULAR FILTRATION RATE > 60.0 (>56); GLUCOSE, FASTING 104 MG/DL (60-100); MAGNESIUM LEVEL 2.3 MG/DL (1.8-2.4); POTASSIUM SERUM 4.8 MMOL/L (3.5-5.1); SODIUM LEVEL 139 MMOL/L (136-145)
[2024-07-15 07:43] VITALS: BP 149/67; TEMP 97.8; O2SAT 95
[2024-07-15 13:05] VITALS: BP 144/69; TEMP 97.6; O2SAT 95
[2024-07-15] MEDS: LevoFLOXacin 750 MG TABLET PO SCH (14:47)
[2024-07-15] MEDS: metroNIDAZOLE (FLAGYL) 500MG TABLET PO SCH (14:47)
[2024-07-15 15:51] VITALS: BP 118/78; TEMP 97.6; O2SAT 95
[2024-07-15 19:36] VITALS: BP 141/76; TEMP 97.1; O2SAT 97
[2024-07-15 23:08] VITALS: BP 131/81; TEMP 98.1; O2SAT 93
[2024-07-16 03:49] VITALS: BP 129/78; TEMP 97.4; O2SAT 95
[2024-07-16 06:10] LABS: BLOOD UREA NITROGEN 15 MG/DL (9-23); CALCIUM LEVEL 9.1 MG/DL (8.5-10.1); CARBON DIOXIDE LEVEL 27 MMOL/L (20-31); CHLORIDE LEVEL 105 MMOL/L (98-107); CREATININE FOR GFR 0.76 MG/DL (0.70-1.30); GLOMERULAR FILTRATION RATE > 60.0 (>56); GLUCOSE, FASTING 104 MG/DL (60-100); MAGNESIUM LEVEL 2.3 MG/DL (1.8-2.4); POTASSIUM SERUM 4.7 MMOL/L (3.5-5.1); SODIUM LEVEL 139 MMOL/L (136-145)
[2024-07-16 07:43] VITALS: BP 152/96; TEMP 97.9; O2SAT 92
[2024-07-16 07:57] LABS: BASO # 0.1 10^3/uL (0.0-0.2); EOS # 0.7 10^3/uL (0.0-0.5); EOS % 5.5 % (0.0-3.0); HEMOGLOBIN 12.7 g/dl (13.5-17.5); LYMPH # 3.1 10^3/uL (1.5-5.0); LYMPH % 25.2 % (24.0-44.0); MEAN CORPUSCULAR HEMOGLOBIN 29.8 pg (27.0-33.0); MEAN CORPUSCULAR HGB CONC 32.6 g/dl (32.0-36.5); MEAN CORPUSCULAR VOLUME 91.5 fl (80.0-96.0); MONO % 8.4 % (2.0-8.0); NEUTROPHILS # 7.2 10^3/uL (1.5-8.5); PLATELET COUNT, AUTOMATED 562 10^3/uL (150-450); RED BLOOD COUNT 4.26 10^6/uL (4.30-6.10); WHITE BLOOD COUNT 12.4 10^3/uL (4.0-10.0)
[2024-07-16 08:03] LABS: C REACTIVE PROTEIN QUANTITATIV 5.31 MG/DL (<1.0)
[2024-07-16 08:11] LABS: ERYTHROCYTE SEDIMENTATION RATE 61 mm/hr (0-20)
[2024-07-16] MEDS: KETOROLAC 30 MG/ML 1ML VIAL IV ONE (08:35)
[2024-07-16] MEDS: PERCOCET 5MG/325MG TAB PO ONE (08:37)
[2024-07-16] MEDS ORDERED: NALOXONE INJ 0.4MG/1ML VIAL IV PRN (09:30)
[2024-07-16] MEDS ORDERED: MORPHINE 4 MG/ML 1ML VIAL IV ONE (09:45)
[2024-07-16 11:50] VITALS: BP 143/78; TEMP 97.7; O2SAT 94
[2024-07-16 16:12] VITALS: BP 140/77; TEMP 97.8; O2SAT 96
[2024-07-16 19:32] VITALS: BP 128/79; TEMP 98.4; O2SAT 94
[2024-07-16] MEDS: KETOROLAC 30 MG/ML 1ML VIAL IV PRN (19:35)
[2024-07-16] MEDS: diphenhydrAMINE CREAM 30GM TOP PRN (20:31)
[2024-07-16 23:57] VITALS: BP 168/99; TEMP 97.2; O2SAT 97
[2024-07-17] MEDS: ACETAMINOPHEN 325 MG TAB PO ONE (03:11)
[2024-07-17 04:13] VITALS: BP 134/73; TEMP 97.3; O2SAT 95
[2024-07-17 06:33] LABS: BASO # 0.1 10^3/uL (0.0-0.2); EOS # 0.7 10^3/uL (0.0-0.5); EOS % 6.2 % (0.0-3.0); HEMATOCRIT 39.6 % (42.0-52.0); HEMOGLOBIN 12.8 g/dl (13.5-17.5); LYMPH # 3.4 10^3/uL (1.5-5.0); LYMPH % 28.6 % (24.0-44.0); MEAN CORPUSCULAR HEMOGLOBIN 29.6 pg (27.0-33.0); MEAN CORPUSCULAR HGB CONC 32.3 g/dl (32.0-36.5); MEAN CORPUSCULAR VOLUME 91.7 fl (80.0-96.0); MONO % 8.6 % (2.0-8.0); NEUTROPHILS # 6.3 10^3/uL (1.5-8.5); NEUTROPHILS % 52.7 % (36.0-66.0); PLATELET COUNT, AUTOMATED 524 10^3/uL (150-450); RED BLOOD COUNT 4.32 10^6/uL (4.30-6.10); WHITE BLOOD COUNT 11.9 10^3/uL (4.0-10.0)
[2024-07-17 07:06] LABS: BLOOD UREA NITROGEN 17 MG/DL (9-23); CALCIUM LEVEL 9.4 MG/DL (8.5-10.1); CARBON DIOXIDE LEVEL 26 MMOL/L (20-31); CHLORIDE LEVEL 105 MMOL/L (98-107); CREATININE FOR GFR 0.81 MG/DL (0.70-1.30); GLOMERULAR FILTRATION RATE > 60.0 (>56); GLUCOSE, FASTING 98 MG/DL (60-100); MAGNESIUM LEVEL 2.3 MG/DL (1.8-2.4); POTASSIUM SERUM 4.9 MMOL/L (3.5-5.1); SODIUM LEVEL 140 MMOL/L (136-145)
[2024-07-17 08:00] VITALS: BP 141/75; TEMP 97.9; O2SAT 90
[2024-07-17] MEDS ORDERED: ALTEPLASE 2MG/2ML VIAL XX ONE (10:55)
[2024-07-17] MEDS: LIDOCAINE 1% MDV 20ML VIAL SC ONE (11:07)
[2024-07-17] MEDS: ALTEPLASE 10MG IN NS 60ML SYRINGE INTRAPLEU ONE (11:21)
[2024-07-17] MEDS: MORPHINE 2 MG/ML 1ML VIAL IV ONE ×2 (11:30→16:18)
[2024-07-17] MEDS: oxyCODONE 5MG TAB PO ONE (11:42)
[2024-07-17 12:00] VITALS: BP 142/64; TEMP 97.6; O2SAT 91
[2024-07-17] MEDS: ACETAMINOPHEN 500 MG TAB PO ONE (12:00)
[2024-07-17] MEDS: KETOROLAC 30 MG/ML 1ML VIAL IV SCH (12:00)
[2024-07-17] MEDS: PERCOCET 5MG/325MG TAB PO PRN (14:50)
[2024-07-17] MEDS ORDERED: oxyCODONE 10 MG CR TAB PO ONE (15:00)
[2024-07-17 15:41] VITALS: BP 122/73; TEMP 98; O2SAT 95
[2024-07-17] MEDS ORDERED: ACETAMINOPHEN 500 MG TAB PO SCH (18:00)
[2024-07-17 19:52] VITALS: BP 120/79; TEMP 97.6; O2SAT 97
[2024-07-18] VITALS (8 sets, daily range): BP systolic 119–150; BP diastolic 61–81; TEMP 97.2–98.5; O2SAT 91–97
[2024-07-18 06:31] LABS: BASO # 0.1 10^3/uL (0.0-0.2); EOS # 0.8 10^3/uL (0.0-0.5); EOS % 6.4 % (0.0-3.0); HEMATOCRIT 39.1 % (42.0-52.0); HEMOGLOBIN 12.2 g/dl (13.5-17.5); LYMPH # 2.9 10^3/uL (1.5-5.0); LYMPH % 24.9 % (24.0-44.0); MEAN CORPUSCULAR HGB CONC 31.2 g/dl (32.0-36.5); MEAN CORPUSCULAR VOLUME 92.9 fl (80.0-96.0); MONO % 8.2 % (2.0-8.0); NEUTROPHILS # 6.7 10^3/uL (1.5-8.5); NEUTROPHILS % 56.9 % (36.0-66.0); PLATELET COUNT, AUTOMATED 514 10^3/uL (150-450); RED BLOOD COUNT 4.21 10^6/uL (4.30-6.10); WHITE BLOOD COUNT 11.7 10^3/uL (4.0-10.0)
[2024-07-18 06:58] LABS: BLOOD UREA NITROGEN 21 MG/DL (9-23); CALCIUM LEVEL 9.2 MG/DL (8.5-10.1); CARBON DIOXIDE LEVEL 28 MMOL/L (20-31); CHLORIDE LEVEL 105 MMOL/L (98-107); CREATININE FOR GFR 0.97 MG/DL (0.70-1.30); GLOMERULAR FILTRATION RATE > 60.0 (>56); GLUCOSE, FASTING 94 MG/DL (60-100); POTASSIUM SERUM 5.5 MMOL/L (3.5-5.1); SODIUM LEVEL 141 MMOL/L (136-145)
[2024-07-18] MEDS ORDERED: LevoFLOXacin 750 MG TABLET PO ONE (10:15)
[2024-07-18] MEDS: LevoFLOXacin 750 MG TABLET PO SCH (11:47)
[2024-07-18] MEDS: metroNIDAZOLE (FLAGYL) 500MG TABLET PO SCH (13:46)
[2024-07-18] MEDS: PATIROMER SORBITEX CALCIUM 8.4 GM POWDER PACKET (VELTASSA) PO ONE (17:00)
[2024-07-18] MEDS: CALCIUM GLUCONATE 1,000 MG in DEXTROSE 5% (D5W) MINI-BAG PLU 100 ML IV ONE (17:01)
[2024-07-19] VITALS (26 sets, daily range): BP systolic 108–142; BP diastolic 64–74; TEMP 97.5–98; O2SAT 78–99
[2024-07-19 06:18] LABS: BASO # 0.1 10^3/uL (0.0-0.2); BASO % 0.9 % (0.0-1.0); EOS % 8.8 % (0.0-3.0); HEMATOCRIT 38.4 % (42.0-52.0); HEMOGLOBIN 12.1 g/dl (13.5-17.5); LYMPH # 2.9 10^3/uL (1.5-5.0); LYMPH % 24.6 % (24.0-44.0); MEAN CORPUSCULAR HEMOGLOBIN 29.6 pg (27.0-33.0); MEAN CORPUSCULAR HGB CONC 31.5 g/dl (32.0-36.5); MEAN CORPUSCULAR VOLUME 93.9 fl (80.0-96.0); MONO # 0.9 10^3/uL (0.0-0.8); MONO % 7.7 % (2.0-8.0); NEUTROPHILS # 6.5 10^3/uL (1.5-8.5); NEUTROPHILS % 55.4 % (36.0-66.0); PLATELET COUNT, AUTOMATED 475 10^3/uL (150-450); RED BLOOD COUNT 4.09 10^6/uL (4.30-6.10); WHITE BLOOD COUNT 11.8 10^3/uL (4.0-10.0)
[2024-07-19 06:39] LABS: BLOOD UREA NITROGEN 18 MG/DL (9-23); CARBON DIOXIDE LEVEL 27 MMOL/L (20-31); CHLORIDE LEVEL 107 MMOL/L (98-107); GLOMERULAR FILTRATION RATE > 60.0 (>56); GLUCOSE, FASTING 97 MG/DL (60-100); POTASSIUM SERUM 5.2 MMOL/L (3.5-5.1); SODIUM LEVEL 142 MMOL/L (136-145)
[2024-07-19 08:37] LABS: C REACTIVE PROTEIN QUANTITATIV 3.35 MG/DL (<1.0)
[2024-07-19 08:43] LABS: ERYTHROCYTE SEDIMENTATION RATE 44 mm/hr (0-20)
[2024-07-19 08:45] LABS: PROCALCITONIN 0.14 ng/ml
[2024-07-19] MEDS: PERCOCET 5MG/325MG TAB PO PRN (09:02)
[2024-07-19] MEDS: CALCIUM GLUCONATE 1,000 MG in DEXTROSE 5% (D5W) MINI-BAG PLU 100 ML IV ONE (09:03)
[2024-07-19] MEDS: PATIROMER SORBITEX CALCIUM 8.4 GM POWDER PACKET (VELTASSA) PO ONE (09:04)
[2024-07-19] MEDS: FUROSEMIDE 40MG/4ML VIAL IV ONE (12:32)
[2024-07-19] MEDS ORDERED: METR-265 PO (15:03)
[2024-07-19] MEDS ORDERED: BACI1CAP PO (15:03)
[2024-07-19] MEDS ORDERED: LEVO75TAB PO (15:03)
[2024-07-19] MEDS: FUROSEMIDE 40 MG TAB PO ONE (17:05)
[2024-07-20] VITALS (14 sets, daily range): BP systolic 125–147; BP diastolic 75–81; TEMP 97.4–98.1; O2SAT 85–98
[2024-07-20 06:16] LABS: BASO # 0.1 10^3/uL (0.0-0.2); BASO % 0.9 % (0.0-1.0); EOS # 0.9 10^3/uL (0.0-0.5); EOS % 7.1 % (0.0-3.0); HEMATOCRIT 39.1 % (42.0-52.0); LYMPH # 2.8 10^3/uL (1.5-5.0); LYMPH % 22.9 % (24.0-44.0); MEAN CORPUSCULAR HEMOGLOBIN 29.1 pg (27.0-33.0); MEAN CORPUSCULAR HGB CONC 30.7 g/dl (32.0-36.5); MEAN CORPUSCULAR VOLUME 94.9 fl (80.0-96.0); MONO % 8.5 % (2.0-8.0); NEUTROPHILS # 7.1 10^3/uL (1.5-8.5); NEUTROPHILS % 58.1 % (36.0-66.0); PLATELET COUNT, AUTOMATED 489 10^3/uL (150-450); RED BLOOD COUNT 4.12 10^6/uL (4.30-6.10); WHITE BLOOD COUNT 12.3 10^3/uL (4.0-10.0)
[2024-07-20 06:42] LABS: BLOOD UREA NITROGEN 21 MG/DL (9-23); CALCIUM LEVEL 9.3 MG/DL (8.5-10.1); CARBON DIOXIDE LEVEL 29 MMOL/L (20-31); CHLORIDE LEVEL 106 MMOL/L (98-107); CREATININE FOR GFR 1.01 MG/DL (0.70-1.30); GLOMERULAR FILTRATION RATE > 60.0 (>56); GLUCOSE, FASTING 87 MG/DL (60-100); POTASSIUM SERUM 4.9 MMOL/L (3.5-5.1); SODIUM LEVEL 143 MMOL/L (136-145)
[2024-07-20] MEDS ORDERED: LIDO5TD TD (07:14)
[2024-07-20] MEDS ORDERED: OXYC1TAB23 PO (07:17)
[2024-07-20] MEDS: FUROSEMIDE 40 MG TAB PO SCH (09:37)
== END 2024-07-20 14:01 | disposition home or self-care (01) | DRG 194 ==
LOC: M ED 14:51 → M ED INP 17:59 → M PCU 21:34
PROVIDERS: ADMIT Student in an Organized Health Care Education/Training Program; ATTEND General Practice
PROC: 0W9B3ZZ Drainage of Left Pleural Cavity, Percutaneous Approach (ICD-10-PCS; principal; 2024-07-10)
PROC: 0W9B3ZZ Drainage of Left Pleural Cavity, Percutaneous Approach (ICD-10-PCS; 2024-07-12)
PROC: 0W9B3ZZ Drainage of Left Pleural Cavity, Percutaneous Approach (ICD-10-PCS; 2024-07-12)
PROC: 3E03317 Introduction of Other Thrombolytic into Peripheral Vein, Percutaneous Approach (ICD-10-PCS; 2024-07-17)
DX: J18.9 Pneumonia, unspecified organism (principal); J98.11 Atelectasis; J91.8 Pleural effusion in other conditions classified elsewhere; Z68.42 Body mass index [BMI] 45.0-49.9, adult; J44.0 Chronic obstructive pulmonary disease with (acute) lower respiratory infection; I10 Essential (primary) hypertension; F17.200 Nicotine dependence, unspecified, uncomplicated; G47.33 Obstructive sleep apnea (adult) (pediatric); E66.01 Morbid (severe) obesity due to excess calories; M54.50 Low back pain, unspecified; G89.29 Other chronic pain; E87.5 Hyperkalemia; F32.A Depression, unspecified; Z86.73 Personal history of transient ischemic attack (TIA), and cerebral infarction without residual deficits; Z79.899 Other long term (current) drug therapy

== ENCOUNTER 2024-07-31 15:58 | Observation (INO) | payer MEDICARE ==
[~2024-07-31] VITALS: Ht 172.7 cm; Wt 160.0 kg
[~2024-07-31 15:58] MED LIST changes: -ISOVUE-370 76% 100ML VIAL As Ordered ONE; -LEVO1TAB40 PO
[2024-07-31 17:30] LABS: BASO # 0.1 10^3/uL (0.0-0.2); BASO % 0.6 % (0.0-1.0); EOS # 0.2 10^3/uL (0.0-0.5); EOS % 1.5 % (0.0-3.0); HEMATOCRIT 39.9 % (42.0-52.0); HEMOGLOBIN 13.5 g/dl (13.5-17.5); LYMPH # 2.6 10^3/uL (1.5-5.0); LYMPH % 20.3 % (24.0-44.0); MEAN CORPUSCULAR HEMOGLOBIN 29.7 pg (27.0-33.0); MEAN CORPUSCULAR HGB CONC 33.8 g/dl (32.0-36.5); MEAN CORPUSCULAR VOLUME 87.9 fl (80.0-96.0); MONO % 7.6 % (2.0-8.0); NEUTROPHILS % 69.4 % (36.0-66.0); PLATELET COUNT, AUTOMATED 419 10^3/uL (150-450); RED BLOOD COUNT 4.54 10^6/uL (4.30-6.10)
[2024-07-31 17:56] LABS: LIPASE 35 U/L (12-53)
[2024-07-31 18:18] LABS: ALBUMIN 3.3 G/DL (3.2-5.2); ALKALINE PHOSPHATASE 61 U/L (40-129); ALT/SGPT 36 U/L (7.0-40); AST/SGOT 25 U/L (<34); BILIRUBIN,DIRECT 0.1 MG/DL (<0.4); BILIRUBIN,TOTAL 0.5 MG/DL (0.3-1.2); BLOOD UREA NITROGEN 15 MG/DL (9-23); CALCIUM LEVEL 9.1 MG/DL (8.5-10.1); CARBON DIOXIDE LEVEL 23 MMOL/L (20-31); CHLORIDE LEVEL 107 MMOL/L (98-107); CREATININE FOR GFR 0.78 MG/DL (0.70-1.30); GLOMERULAR FILTRATION RATE > 60.0 (>56); GLUCOSE, FASTING 93 MG/DL (60-100); POTASSIUM SERUM 4.2 MMOL/L (3.5-5.1); SODIUM LEVEL 140 MMOL/L (136-145); TOTAL PROTEIN 6.5 G/DL (5.7-8.2)
[2024-07-31 19:26] LABS: C REACTIVE PROTEIN QUANTITATIV 0.91 MG/DL (<1.0)
[2024-07-31 19:38] LABS: PROCALCITONIN 0.11 ng/ml
[2024-07-31] MEDS ORDERED: LEVO1TAB40 PO (19:49)
[2024-07-31] MEDS ORDERED: METR-265 PO (19:49)
[2024-07-31] MEDS ORDERED: HOME MED LIST COMPLETE! XX SCH (19:50)
[2024-07-31] MEDS: VANCOMYCIN HCL 2,000 MG, VIAL MATE ADAPTER 1 EACH in NS 500 ML IV ONE (20:02)
[2024-07-31] MEDS ORDERED: CEPACOL LOZENGE PO PRN (21:05)
[2024-07-31] MEDS ORDERED: guaiFENesin SYRUP 200MG 10ML UDC PO PRN (21:05)
[2024-07-31] MEDS ORDERED: MOM 30ML SUSPENSION UDC PO PRN (21:05)
[2024-07-31] MEDS ORDERED: FUROSEMIDE 40 MG TAB PO PRN (21:05)
[2024-07-31] MEDS ORDERED: MAALOX 30 ML SUSP *UDC PO PRN (21:05)
[2024-07-31] MEDS: MEROPENEM INJ 1 GM in IV 1 EA IV ONE (22:06)
[2024-07-31] MEDS: ACETAMINOPHEN 325 MG TAB PO PRN (22:06)
[2024-07-31] MEDS: FIDAXOMICIN 200 MG TAB (DIFICID) PO SCH (22:42)
[2024-08-01] VITALS (25 sets, daily range): BP systolic 110–135; BP diastolic 65–72; TEMP 97.3–97.9; O2SAT 90–99
[2024-08-01] MEDS: ALBUTEROL 90 MCG/ACT 8GM HFA INHALER INH SCH (01:34)
[2024-08-01] MEDS: PERCOCET 5MG/325MG TAB PO PRN (02:20)
[2024-08-01] MEDS: HEPARIN SOD (PORCINE) 5000UNITS/ML 1ML VIAL/SYRINGE SC SCH (05:12)
[2024-08-01 06:10] LABS: HEMATOCRIT 39.6 % (42.0-52.0); MEAN CORPUSCULAR HEMOGLOBIN 29.7 pg (27.0-33.0); MEAN CORPUSCULAR HGB CONC 32.8 g/dl (32.0-36.5); MEAN CORPUSCULAR VOLUME 90.6 fl (80.0-96.0); PLATELET COUNT, AUTOMATED 387 10^3/uL (150-450); RED BLOOD COUNT 4.37 10^6/uL (4.30-6.10); WHITE BLOOD COUNT 8.8 10^3/uL (4.0-10.0)
[2024-08-01 06:40] LABS: PROCALCITONIN 0.11 ng/ml
[2024-08-01 06:44] LABS: ALKALINE PHOSPHATASE 57 U/L (40-129); ALT/SGPT 31 U/L (7.0-40); AST/SGOT 18 U/L (<34); BILIRUBIN,TOTAL 0.4 MG/DL (0.3-1.2); BLOOD UREA NITROGEN 14 MG/DL (9-23); CALCIUM LEVEL 8.8 MG/DL (8.5-10.1); CARBON DIOXIDE LEVEL 25 MMOL/L (20-31); CHLORIDE LEVEL 107 MMOL/L (98-107); CREATININE FOR GFR 0.74 MG/DL (0.70-1.30); GLOMERULAR FILTRATION RATE > 60.0 (>56); GLUCOSE, FASTING 119 MG/DL (60-100); MAGNESIUM LEVEL 2.1 MG/DL (1.8-2.4); POTASSIUM SERUM 3.9 MMOL/L (3.5-5.1); SODIUM LEVEL 140 MMOL/L (136-145); TOTAL PROTEIN 5.9 G/DL (5.7-8.2)
[2024-08-01] MEDS: DOCUSATE SODIUM 100MG CAPSULE PO SCH (08:44)
[2024-08-01] MEDS: PANTOPRAZOLE 40MG VIAL IV SCH (08:59)
[2024-08-01] MEDS: DULoxetine 30MG CAPSULE (CYMBALTA) PO SCH (08:59)
[2024-08-01] MEDS: FLUTICASONE PROP 0.05% NASAL SPRAY 16 GM (FLONASE) SCH (08:59)
[2024-08-01] MEDS: LOSARTAN 25 MG TAB PO SCH (09:00)
[2024-08-01] MEDS ORDERED: KETOROLAC 30 MG/ML 1ML VIAL IV STA (10:59)
[2024-08-02] VITALS (9 sets, daily range): BP systolic 120–127; BP diastolic 72–77; TEMP 98.2–98.8; O2SAT 93–98
[2024-08-02 05:09] LABS: HEMATOCRIT 38.5 % (42.0-52.0); HEMOGLOBIN 12.7 g/dl (13.5-17.5); MEAN CORPUSCULAR HEMOGLOBIN 29.8 pg (27.0-33.0); MEAN CORPUSCULAR VOLUME 90.4 fl (80.0-96.0); PLATELET COUNT, AUTOMATED 375 10^3/uL (150-450); RED BLOOD COUNT 4.26 10^6/uL (4.30-6.10); WHITE BLOOD COUNT 9.1 10^3/uL (4.0-10.0)
[2024-08-02 05:31] LABS: ATYPICAL LYMPH 4 % (0-5); BASOPHILS 3 % (0-1); EOSINOPHILS 8 % (0-3); LYMPHOCYTES 33 % (16-44); MONOCYTES 8 % (0-5); NEUTROPHILS 44 % (28-66)
[2024-08-02 05:32] LABS: PLATELET ESTIMATE NORMAL (NORMAL)
[2024-08-02 05:40] LABS: BLOOD UREA NITROGEN 12 MG/DL (9-23); CALCIUM LEVEL 8.7 MG/DL (8.5-10.1); CARBON DIOXIDE LEVEL 27 MMOL/L (20-31); CHLORIDE LEVEL 108 MMOL/L (98-107); CREATININE FOR GFR 0.71 MG/DL (0.70-1.30); GLOMERULAR FILTRATION RATE > 60.0 (>56); GLUCOSE, FASTING 95 MG/DL (60-100); MAGNESIUM LEVEL 2.1 MG/DL (1.8-2.4); POTASSIUM SERUM 4.3 MMOL/L (3.5-5.1); SODIUM LEVEL 141 MMOL/L (136-145)
[2024-08-04 18:30] LABS: URINE STREP PNEUMONIAE ANTIGEN NOT DETECTED (NOT DETECT)
== END 2024-08-02 12:55 | disposition home or self-care (01) ==
LOC: M ED 15:58 → INTOOBSV 21:05 → M ED INP 21:05 → M PCU 08-01 01:05
PROVIDERS: ADMIT Student in an Organized Health Care Education/Training Program; ATTEND Student in an Organized Health Care Education/Training Program
DX: J18.9 Pneumonia, unspecified organism (principal); G89.22 Chronic post-thoracotomy pain; R10.12 Left upper quadrant pain; R19.7 Diarrhea, unspecified; J90 Pleural effusion, not elsewhere classified; R06.02 Shortness of breath; Z98.890 Other specified postprocedural states; E66.9 Obesity, unspecified; I10 Essential (primary) hypertension; G47.33 Obstructive sleep apnea (adult) (pediatric); Z79.899 Other long term (current) drug therapy; Z79.2 Long term (current) use of antibiotics
CPT/HCPCS: 36415; 71046; 74177; 76705; 80048; 80053; 80076; 83605; 83690; 83735; 84145; 85025; 85027; 86140; 87040; 87449; 87486; 87581; 87633; 87641; 87798; 87899; 93005; 94640; 96365; 96367; 96372; 97116; 97161; 97165; 97530; 99285; 99406; G0378; G0463; J2184; J2470; J3371; Q9967

== ENCOUNTER → 2024-07-31 | Outpatient (REF) | payer MEDICARE, OTHER ==
[~2024-07-31] MED LIST changes: +ACET-683 PO; +BACI1CAP PO; +DULO1CAP6 PO; +FLUTISP; +FURO40TA2 PO; +LEVO1TAB40 PO; +LEVO75TAB PO; +LIDO5TD TD; +LOSA25TA13 PO; +METR-265 PO; +OXYC1TAB23 PO; +PANT40TA29 PO
[2024-07-31 14:11] LABS: BASO # 0.1 10^3/uL (0.0-0.2); BASO % 0.7 % (0.0-1.0); EOS # 0.3 10^3/uL (0.0-0.5); EOS % 2.2 % (0.0-3.0); HEMOGLOBIN 13.5 g/dl (13.5-17.5); LYMPH # 3.9 10^3/uL (1.5-5.0); LYMPH % 29.4 % (24.0-44.0); MEAN CORPUSCULAR HEMOGLOBIN 30.5 pg (27.0-33.0); MEAN CORPUSCULAR HGB CONC 32.9 g/dl (32.0-36.5); MEAN CORPUSCULAR VOLUME 92.8 fl (80.0-96.0); MONO # 1.2 10^3/uL (0.0-0.8); MONO % 8.8 % (2.0-8.0); NEUTROPHILS # 7.7 10^3/uL (1.5-8.5); NEUTROPHILS % 58.4 % (36.0-66.0); PLATELET COUNT, AUTOMATED 451 10^3/uL (150-450); RED BLOOD COUNT 4.42 10^6/uL (4.30-6.10); WHITE BLOOD COUNT 13.3 10^3/uL (4.0-10.0)
[2024-07-31 14:40] LABS: ALBUMIN 3.3 G/DL (3.2-5.2); ALKALINE PHOSPHATASE 62 U/L (40-129); ALT/SGPT 35 U/L (7.0-40); AST/SGOT 20 U/L (<34); BILIRUBIN,TOTAL 0.3 MG/DL (0.3-1.2); BLOOD UREA NITROGEN 17 MG/DL (9-23); CALCIUM LEVEL 9.3 MG/DL (8.5-10.1); CARBON DIOXIDE LEVEL 26 MMOL/L (20-31); CHLORIDE LEVEL 107 MMOL/L (98-107); CREATININE FOR GFR 0.86 MG/DL (0.70-1.30); GLOMERULAR FILTRATION RATE > 60.0 (>56); GLUCOSE, FASTING 80 MG/DL (60-100); POTASSIUM SERUM 4.2 MMOL/L (3.5-5.1); SODIUM LEVEL 142 MMOL/L (136-145); TOTAL PROTEIN 6.5 G/DL (5.7-8.2)
== END ==
LOC: M SFHCADAM 10:55
PROVIDERS: ATTEND Physician Assistant
DX: R10.12 Left upper quadrant pain (principal); R19.7 Diarrhea, unspecified; Z98.890 Other specified postprocedural states; J90 Pleural effusion, not elsewhere classified; R06.02 Shortness of breath

== ENCOUNTER → 2024-07-31 | Outpatient (CLI) | payer MEDICARE ==
[~2024-07-31] MED LIST changes: +ISOVUE-370 76% 100ML VIAL As Ordered ONE
== END ==
LOC: M RAD 14:28
PROVIDERS: ATTEND Physician Assistant
DX: R10.12 Left upper quadrant pain (principal); J90 Pleural effusion, not elsewhere classified; R19.7 Diarrhea, unspecified; Z98.890 Other specified postprocedural states; R06.02 Shortness of breath
CPT/HCPCS: 74177; Q9967

== ENCOUNTER 2025-02-02 13:39 | Emergency (ER) | payer MEDICARE ==
[~2025-02-02] VITALS: Ht 172.7 cm; Wt 154.6 kg
[~2025-02-02 13:39] MED LIST changes: +LEVO1TAB40 PO
[2025-02-02 14:36] LABS: VENOUS BASE EXCESS -1.4 (-2.0-2.0); VENOUS HCO3 22.0 MMOL/L (23.0-27.0); VENOUS O2 SATURATION 94.7 % (60.0-80.0); VENOUS PARTIAL PRESSURE CO2 33.7 mmHg (38.0-50.0); VENOUS PARTIAL PRESSURE O2 66.7 mmHg (30.0-50.0); VENOUS PH 7.432 UNITS (7.330-7.430); VENOUS STANDARD HCO3 23.2 MMOL/L; VENOUS TOTAL CO2 23.0 MMOL/L (24.0-28.0)
[2025-02-02 14:41] LABS: BASO # 0.1 10^3/uL (0.0-0.2); BASO % 0.8 % (0.0-1.0); EOS # 0.2 10^3/uL (0.0-0.5); EOS % 1.7 % (0.0-3.0); LYMPH # 2.4 10^3/uL (1.5-5.0); LYMPH % 19.2 % (24.0-44.0); MONO # 0.9 10^3/uL (0.0-0.8); MONO % 7.4 % (2.0-8.0); NEUTROPHILS # 8.7 10^3/uL (1.5-8.5); NEUTROPHILS % 70.6 % (36.0-66.0); PLATELET COUNT, AUTOMATED 390 10^3/uL (150-450)
[2025-02-02 15:01] LABS: INR 0.95
[2025-02-02 15:13] LABS: ALT/SGPT 27 U/L (7.0-40); AST/SGOT 16 U/L (<34); CALCIUM LEVEL 9.8 MG/DL (8.5-10.1); CARBON DIOXIDE LEVEL 21 MMOL/L (20-31); CHLORIDE LEVEL 109 MMOL/L (98-107); CREATININE FOR GFR 0.83 MG/DL (0.70-1.30); GLOMERULAR FILTRATION RATE > 90.0 (>56); POTASSIUM SERUM 4.5 MMOL/L (3.5-5.1); SODIUM LEVEL 143 MMOL/L (136-145); THYROXINE (T4) 7.0 UG/DL (4.5-10.9)
[2025-02-02] MEDS ORDERED: LEVO1TAB39 PO (18:05)
[2025-02-02 18:24] VITALS: BP 144/82; TEMP 96.9; O2SAT 97
== END 2025-02-02 18:33 | disposition home or self-care (01) ==
LOC: M ED 13:39
DX: J20.9 Acute bronchitis, unspecified (principal); R04.2 Hemoptysis; I10 Essential (primary) hypertension; K21.9 Gastro-esophageal reflux disease without esophagitis; G47.33 Obstructive sleep apnea (adult) (pediatric); E66.9 Obesity, unspecified; F17.200 Nicotine dependence, unspecified, uncomplicated; Z86.79 Personal history of other diseases of the circulatory system; Z91.040 Latex allergy status; Z79.1 Long term (current) use of non-steroidal anti-inflammatories (NSAID); Z79.899 Other long term (current) drug therapy

== ENCOUNTER → 2025-03-24 | Outpatient (REF) | payer MEDICARE ==
[~2025-03-24] MED LIST changes: +LEVO1TAB39 PO
[2025-03-24 18:40] LABS: CHOLESTEROL LEVEL 219.0 MG/DL (<200); CHOLESTEROL RISK RATIO 4.49 (<5); LDL CHOLESTEROL 130.5 MG/DL (<100); NON-HDL-C 170.3 MG/DL; TRIGLYCERIDES LEVEL 199.0 MG/DL (<150)
[2025-03-24 19:39] LABS: ESTIMATED AVERAGE GLUCOSE 105.0 MG/DL (60-110)
== END ==
LOC: M SFHCADAM 14:19
PROVIDERS: ATTEND Physician Assistant
DX: M51.362 Other intervertebral disc degeneration, lumbar region with discogenic back pain and lower extremity pain (principal); Z13.1 Encounter for screening for diabetes mellitus; E66.813 Obesity, class 3; Z13.220 Encounter for screening for lipoid disorders